=== PATIENT | male | born 1990 | race Asian ===

== ENCOUNTER 2022-07-21 21:15 | Emergency (ER) | payer OTHER ==
[~2022-07-21] VITALS: Ht 182.9 cm; Wt 89.3 kg
[2022-07-21] MEDS ORDERED: PROPARACAINE 0.5% OPHTH SOL 15ML OD ONE (23:00)
[2022-07-21] MEDS ORDERED: FLUORESCEIN OPHTH 1MG STRIP OD ONE (23:00)
[2022-07-21] MEDS ORDERED: POLYSOL OD (23:36)
[2022-07-21 23:42] VITALS: BP 113/62
== END 2022-07-21 23:48 | disposition home or self-care (01) ==
LOC: M ED 21:15
DX: T15.01XA Foreign body in cornea, right eye, initial encounter (principal)

== ENCOUNTER 2023-07-17 21:00 | Emergency (ER) | payer OTHER ==
[~2023-07-17] VITALS: Ht 182.9 cm; Wt 91.9 kg
[~2023-07-17 21:00] MED LIST: POLYSOL OD
[2023-07-17 21:01] VITALS: BP 118/66; O2SAT 99
[2023-07-17] MEDS ORDERED: IBUP-1114 PO (21:23)
[2023-07-17] MEDS ORDERED: [UNRECOGNIZED DRUG - REMARK] PO (21:23)
[2023-07-17] MEDS: ACETAMINOPHEN 500 MG TAB PO ONE (21:32)
[2023-07-17 23:40] VITALS: TEMP 101.4
== END 2023-07-18 01:33 | disposition home or self-care (01) ==
LOC: M ED 21:00
DX: B34.0 Adenovirus infection, unspecified (principal); Z11.52 Encounter for screening for COVID-19